=== PATIENT | female | born 2000 ===

== ENCOUNTER → 2023-01-30 09:45 | Outpatient (BNV) | payer OTHER, SELFPAY ==
--- NOTE | 2023-01-30 09:45 | MHC.OFFVIS ---
Intake Intake Visit Reasons: Amb Documentation Allergies Penicillins Allergy (Intermediate, Verified 08/16/22 09:40) Hives HPI HPI Comments History of Present Illness Details student here ([employer] student) c/o of ear pain. no otoscope available. She states that she went out in the rain and feels that she got ear infection because of that. she has no fever and just uncomfortable. she is congested in the mornings but it clears. suspect allergies and serous otitis....it is unclear if she has a canal infection, she is concerned that 'middle ear'...as she has been 'back and forth' with that before. long covnersation and discussion about treating pain and then getting follow up if there is no relief of symptoms. she has no PCP states that 'they all want her to be able to get places she can't go' lives near [facility] but won't go there because long wait list and 'there's a lot of drug addicts going in there'-'its the urgent care place'. she seems somewhat confused by the systems of care. suggested that she try [facility] (lives in [place]) but she [facility] the wrong [facility] for this. limited motivation to address this issue i think. 3 ibuprofen now and 1 claritin and 1 claritin for tomorrow. [facility] Medical History Depression with anxiety IUD (intrauterine device) in place Asthma, moderate persistent, well-controlled Family History Mother Mental health problem HTN (hypertension) Elevated cholesterol DM type 2 (diabetes mellitus, type 2) Father HTN (hypertension) Elevated cholesterol Brother Elevated cholesterol Substance abuse Sister HTN (hypertension) Sister GERD (gastroesophageal reflux disease) Daughter No problems noted. Review of Systems Const Details: Counseling visit: All systems reviewed & are unremarkable except as noted in HPI and below Reports as per HPI Resp Reports as per HPI GI Reports as per HPI Musc Reports as per HPI Neuro Reports as per HPI Psych Reports as per HPI Physical Exam Const Other: no discomfort noted, just when pushes on ear General: cooperative, healthy appearing and no acute distress Nutritional Appearance: well nourished Orientation/consciousness: oriented to person Limitations: no limitations HEENT Other: wnl Eyes Other: wnl Neck Neck: Yes no lymphadenopathy Chest Other: easy breathing Resp Effort & Inspection: able to speak in complete sentences Skin Other: normal in appearance Neuro General: oriented to person Psych Other: see HPI Mental Status: mental status grossly normal Speech and movement: Clear speech present Attitude: cooperative Thought process: Normal thought process present Assessment & Plan Assessment & Plan (1) Otalgia of right ear: Code(s): H92.01 - Otalgia, right ear Plan: teaching done and ibprofen and claritin given w/ instructions to follow up here or w/ urgent care if fever/pain Coding Level of Care Code Est Pt Level 3 (97507) Diagnoses Otalgia of right ear H92.01 Time Spent (min) 15
== END ==
PROVIDERS: PCP Nurse Practitioner Family; Visit Provider Nurse Practitioner Family
DX: H92.01 Otalgia, right ear (principal)
CPT/HCPCS: 99213

== ENCOUNTER → 2023-08-07 09:50 | Outpatient (BNV) | payer OTHER, SELFPAY ==
--- NOTE | 2023-08-07 09:50 | A.OFFVIS_ITS ---
Intake Intake Visit Reasons: Amb Documentation Allergies Penicillins Allergy (Intermediate, Verified 08/16/22 09:40) Hives HPI HPI Comments History of Present Illness Details [employer] student coming for refill of rx's ....she has minor cough now but states that her asthma hasnt been bad...she just needs refills of meds as she is trying to get everything in order in her life so that school is not interrupted. [facility] ventolin but only gave her one pump and she needs a second one so she can be in multiple places. she also has only one vial left of albuterol soultion. she would like refills of both. discussed using the portal to get all her meds and showed her how to use it. requesting midol for cramps, (ibuprofen given) she has motrin at home (otc) asked about periods and if she was interested in b/c method that would stop her period and she states taht she doesnt feel that's a good idea - she recently stopped her control method. (paragard because of intense cramps) and she would like to be off control right now to give her body a break ...she is using condoms without issue. does not have plan b - discussed and she would like it. [facility] Medical History Depression with anxiety IUD (intrauterine device) in place Asthma, moderate persistent, well-controlled Family History Mother Mental health problem HTN (hypertension) Elevated cholesterol DM type 2 (diabetes mellitus, type 2) Father HTN (hypertension) Elevated cholesterol Brother Elevated cholesterol Substance abuse Sister HTN (hypertension) Sister GERD (gastroesophageal reflux disease) Daughter No problems noted. Female Reproductive History Menstrual control method: condoms Review of Systems Const Details: Counseling visit: All systems reviewed & are unremarkable except as noted in HPI and below Reports as per HPI Resp Reports as per HPI GI Reports as per HPI Musc Reports as per HPI Neuro Reports as per HPI Psych Reports as per HPI Physical Exam Const General: cooperative, healthy appearing and no acute distress Nutritional Appearance: well nourished Orientation/consciousness: oriented to person Limitations: no limitations HEENT Other: wnl Eyes Other: wnl Chest Other: easy breathing Resp Effort & Inspection: normal respiratory effort, able to speak in complete sentences and Actively coughing (minimal) Auscultation: clear to auscultation bilaterally Skin Other: normal in appearance Neuro General: oriented to person Psych Other: see HPI Appearance: grossly normal Mental Status: mental status grossly normal Speech and movement: Clear speech present Attitude: cooperative Thought process: Normal thought process present Insight: Good insight present (Psych) Judgement: Good judgement present (Psych) Assessment & Plan Assessment & Plan (1) control counseling: Code(s): Z30.09 - Encounter for other general counseling and advice on contraception (2) Asthma, moderate persistent, well-controlled: Code(s): J45.40 - Moderate persistent asthma, uncomplicated Plan teaching done re: asthma and non-duplication of medication. use of portal for pcp. because she is a [employer] student and young parent - i have refilled rxs to ease her refill process, but she is to request from pcp in future. control counseling done w. rx for plan b and teaching Medications: New levonorgestrel (Plan B One-Step) 1.5 mg PO ONCE 1 tab 6RF Refilled albuterol sulfate 90 mcg/actuation (Ventolin HFA) 1 - 2 puffs inhalation Q4-6H PRN 6.7 grams 0RF shortness of breath or wheezing albuterol sulfate 2.5 mg (3 mL) inhalation Q4-6H PRN 75 mL 0RF shortness of breath or wheezing Coding Level of Care Code Est Pt Level 3 (74098) Diagnoses control counseling Z30. Asthma, moderate persistent, well-controlled J45.40 Time Spent (min) 20 Comment counseling and coord care w. onsite counselor
== END ==
PROVIDERS: PCP Nurse Practitioner Family; Visit Provider Nurse Practitioner Family
DX: Z30.09 Encounter for other general counseling and advice on contraception (principal); J45.40 Moderate persistent asthma, uncomplicated
CPT/HCPCS: 99213

== ENCOUNTER → 2025-02-03 11:27 | Outpatient (BNV) | payer OTHER, SELFPAY ==
--- NOTE | 2025-02-03 11:27 | A.OFFVIS_ITS ---
Intake Visit Reasons: Amb Documentation Allergies Penicillins Allergy (Intermediate, Verified 08/16/22 09:40) Hives HPI Comments Details: ximena is here from [facility] - she was asking for plan b and is now asking for albuterol rx - 1) PLAN B - un protected sex yesterday. - usually they use condoms (he would like her to have many more children but she doesn't want to) but states that condoms have been very affective but yesteraday was impulsive and they didn't use protection (he didn't pull out) . she was on paragard IUD for years but feels that it caused problems (hemorrhoids) and she would ericka to be off of hormones. Discussed that plan b is hormones. discussed other options for control - and she will consider depo but after extensive conversation condoms with plan b is also a good choice for her as their 'failures' on it arent commo n. 2) needing albuterol. states has appt w/ pcp for PE apr 09 and yesterday had an episode of asthma that took 6 pumps to clear. today she has no problems but doesn't want to be stuck w/ o albuterol till noveemb. We discussed at length the use of the portal and her pcp for followup if asthma is getting worse (6 pumps is not normal)...her lungs are clear today. she will use portal to request refill and will call for follow up if it is needed.. she hasn't had bad asthma since (baby is 7 months old) and then it was bad. previous meds for asthma when she was 11 included singulair and flovent. but she feels that it hasn't been bad lately just this one event. PMH reviewed and unchanged [facility] Medical History Depression with anxiety IUD (intrauterine device) in place Asthma, moderate persistent, well-controlled Family History Mother Mental health problem HTN (hypertension) Elevated cholesterol DM type 2 (diabetes mellitus, type 2) Father HTN (hypertension) Elevated cholesterol Brother Elevated cholesterol Substance abuse Sister HTN (hypertension) Sister GERD (gastroesophageal reflux disease) Daughter No problems noted. Review of Systems Const All systems reviewed & are unremarkable except as noted in HPI and below Card Reports no additional complaints Resp Reports as per HPI and Reports no additional complaints GI Reports no additional complaints Details: no previous unprotected sex - just yesterday and tghe day before so she is not concerned about preganncy Reports no additional complaints Skin/Breast Reports system reviewed and no additional complaints, except as documented Neuro Reports no additional complaints Psych Reports no additional complaints Endo Reports no additional complaints Physical Exam Const General: cooperative and healthy appearing Resp Effort & Inspection: normal respiratory effort and able to speak in complete sentences Auscultation: clear to auscultation bilaterally Cardio Rate: regular rate Rhythm: regular rhythm Heart sounds: S1 normal heart sound present and S2 normal heart sound present Skin General skin exam: no rashes or lesions noted Psych Appearance: grossly normal Affect: normal affect Attitude: cooperative Thought process: Normal thought process present Insight: Good insight present (Psych) Judgement: Good judgement present (Psych) Assessment & Plan Assessment & Plan (1) control counseling: Code(s): Z30.09 - Encounter for other general counseling and advice on contraception Category: Medical (2) Asthma, moderate persistent, well-controlled: Code(s): J45.40 - Moderate persistent asthma, uncomplicated Category: Medical (3) Unprotected sex: Code(s): Z72.51 - High risk heterosexual behavior Category: Social Hx Plan extensive counseling, rx for albuterol and plan b and teaching done re: both Medications: Refilled levonorgestrel (Plan B One-Step) 1.5 mg PO ONCE 1 tab 6RF albuterol sulfate 90 mcg/actuation (Ventolin HFA) 1 - 2 puffs inhalation Q4-6H PRN 6.7 grams 0RF shortness of breath or wheezing Coding Level of Care Code Est Pt Level 4 (29618) Diagnoses control counseling Z30.09 Asthma, moderate persistent, well-controlled J45.40 Unprotected sex Z72.51 Time Spent (min) 35 Comment extensive counseling
== END ==
PROVIDERS: PCP Nurse Practitioner Family; Visit Provider Nurse Practitioner Family
DX: Z30.09 Encounter for other general counseling and advice on contraception (principal); J45.40 Moderate persistent asthma, uncomplicated; Z72.51 High risk heterosexual behavior
CPT/HCPCS: 99214